=== PATIENT | male | born 1995 | race American Indian/Alaskan Native ===

== ENCOUNTER 2016-11-21 03:23 | Inpatient (IN) | payer OTHER ==
[2016-11-21 05:24] LABS: Basophils % (Auto) 1.3 % (0.0-1.8); Mean Corpuscular HGB Conc 31 % (32-34); Mean Corpuscular Volume 83 fl (84-94); Platelet Count 340 K/mm3 (140-440); Red Cell Distribution Width 14.3 % (13.2-15.2); White Blood Count 12.3 K/mm3 (4.5-11.0)
[2016-11-21 05:25] LABS: Hematocrit 55.5 % (35.5-45.6); Hemoglobin 17.3 gm/dl (11.8-15.2); Mean Corpuscular Hemoglobin 26 pg (28-32)
[2016-11-21 05:43] LABS: Alanine Aminotransferase 36 units/L (7-56); Albumin 4.5 g/dL (3.9-5); Albumin/Globulin Ratio 1.2 %; Alkaline Phosphatase 186 units/L (35-129); BUN/Creatinine Ratio 12.66; Bilirubin,Total 0.4 mg/dL (0.1-1.2); Blood Urea Nitrogen 19 mg/dL (9-20); Calcium 9.8 mg/dL (8.4-10.2); Chloride 84.1 mmol/L (98-107); Lipase 24 units/L (13-60); Sodium 129 mmol/L (137-145); Total Protein 8.4 g/dL (6.3-8.2)
[2016-11-21 05:48] LABS: Anion Gap 42 mmol/L
[2016-11-21 05:50] LABS: Carbon Dioxide 8 mmol/L (22-30); Glucose 616 mg/dL (75-100)
[2016-11-21] MEDS ORDERED: NACL 0.9% 1000 ML 2,000 ML ONE (06:18)
[2016-11-21] MEDS ORDERED: NACL 0.9% 1000 ML IV ONE (06:21)
[2016-11-21] MEDS ORDERED: D50W (25GM) IV PRN ×2 (06:22→07:23)
--- NOTE | 2016-11-21 06:31 | Emergency Department Report ---
HPI - General Chief Complaint: Abdominal Pain Time Seen by Provider: 11/21/16 06:20 - HPI HPI: Chief complaint: Nausea vomiting polyuria polydipsia and generalized malaise HPI: Patient is a 21-year-old male with no previous history of diabetes but it does run in his family who states he's been having polyuria since August. States since Friday he's been having nausea vomiting and feeling bad. Some weight loss. Patient denies fever, cough, cold, diarrhea. Mode of arrival: [private car] Source: [Patient] Began: See above Duration: See above Context: See above Quality: Abdominal pain and dull Severity: 8 out of 10 Improved with: Nothing Worsened with: Nothing Associated signs and symptoms: See above ED Past Medical Hx - Past Medical History Previous Medical History?: No - Surgical History Past Surgical History?: No - Family History Family history: diabetes - Social History Smoking Status: Never Smoker Substance Use Type: Alcohol (occasionally) - Medications Home Medications: Home Medications Medication Instructions Recorded Confirmed Last Taken Type No Known Home Medications [No 11/21/16 11/21/16 Unknown History Reported Home Medications] ED Review of Systems ROS: Stated complaint: ABD PAIN/VOMITING/SOB Other details as noted in HPI ROS Constitutional: No fever ENT: No uri symptoms Cardiovascular: No chest pain Respiratory: No sob or cough GI: Nodiarrhea : See HPI Skin: No rash Neuro: No focal weakness or numbness Psych: No depression [place]/lymph: No edema Physical Exam - Physical Exam Vital Signs: Vital Signs 11/21/16 11/21/16 03:33 06:23 Temperature 97.2 F L Pulse Rate 109 H 104 H Respiratory 18 Rate Blood Pressure 156/104 Blood Pressure 134/88 [Left] O2 Sat by Pulse 99 99 Oximetry Physical Exam: GENERAL: The patient is well-developed well-nourished . HEENT: Normocephalic. Atraumatic. Extraocular motions are intact. Patient has dry mucous membranes. NECK: Supple. No meningitic signs are noted. There is no adenopathy noted. CHEST/LUNGS: Clear to auscultation. There is no respiratory distress noted. HEART/CARDIOVASCULAR: Regular. There is no tachycardia. There is no gallop rub or murmur. ABDOMEN: Abdomen is soft, mild diffuse tenderness without rebound or guarding. Patient has normal bowel sounds. There is no abdominal distention. SKIN: There is no rash. There is no edema. There is no diaphoresis. NEURO: The patient is awake, alert, and oriented. The patient is cooperative. The patient has no focal neurologic deficits. The patient has normal speech. MUSCULOSKELETAL: There is no tenderness or deformity. There is no limitation range of motion. There is no evidence of acute injury. ED Course Vital Signs 11/21/16 11/21/16 03:33 06:23 Temperature 97.2 F L Pulse Rate 109 H 104 H Respiratory 18 Rate Blood Pressure 156/104 Blood Pressure 134/88 [Left] O2 Sat by Pulse 99 99 Oximetry - Reevaluation(s) Reevaluation #1: 11/21/16 06:34 Patient placed on DKA protocol on 2 L of normal saline were started. Patient will be admitted to the hospitalist. ED Medical Decision Making - Lab Data Result diagrams: 11/21/16 05:08 11/21/16 05:08 Laboratory Tests 11/21/16 05:08 Alkaline Phosphatase 186 H Total Protein 8.4 H Lipase 24 - EKG Data -: EKG Interpreted by Nc EKG shows normal: sinus rhythm Rate: normal (91) - EKG Data When compared to previous EKG there are: previous EKG unavailable Interpretation: other (right atrial enlargement, pulmonary disease pattern) Critical care attestation.: If time is entered above; I have spent that time in minutes in the direct care of this critically ill patient, excluding procedure time. ED Disposition Clinical Impression: DKA (diabetic ketoacidoses) Qualifiers: Diabetes mellitus type: type 1 Diabetes mellitus complication detail: without coma Qualified Code(s): E10.10 - Type 1 diabetes mellitus with ketoacidosis without coma Disposition: OP ADMITTED IP TO THIS HOSP Is pt being admited?: Yes Does the pt Need Aspirin: No Condition: Serious Instructions: Diabetic Ketoacidosis (ED) Referrals: PRIMARY CARE, [Primary Care Provider] - 3-5 Days Time of Disposition: 06:43 (admit to the hospitalist)
[2016-11-21 06:58] LABS: Bilirubin,Urine NEG (Negative); Blood,Urine SM (Negative); Ketones,Urine 80 mg/dL (Negative); Leukocyte Esterase,Urine NEG (Negative); Mucus,Urine FEW /HPF; Nitrite,Urine NEG (Negative); Urobilinogen,Urine < 2.0 mg/dL (<2.0); WBC,Urine < 1.0 /HPF (0.0-6.0)
[2016-11-21] MEDS: NovoLIN R 100 UNITS in NACL 0.9% 99 ML IV SCH ×2 (07:00→19:21)
[2016-11-21 07:07] LABS: Magnesium 2.4 mg/dL (1.7-2.3)
[2016-11-21 07:08] LABS: Calcium 9.8 mg/dL (8.4-10.2); Chloride 83.9 mmol/L (98-107); Potassium 5.3 mmol/L (3.6-5.0)
[2016-11-21] MEDS ORDERED: REGLAN IV PRN (07:23)
[2016-11-21] MEDS ORDERED: NACL 0.9% 1000 ML 1,000 ML IV ONE (07:23)
[2016-11-21] MEDS ORDERED: DULCOLAX PR PRN (07:23)
[2016-11-21] MEDS ORDERED: MILK OF MAGNESIA PO PRN (07:23)
[2016-11-21] MEDS ORDERED: ALUM-MAG HYDROX-SIMETH 200-200-20MG/5ML PO PRN (07:23)
[2016-11-21] MEDS ORDERED: ZOFRAN IV PRN (07:23)
--- NOTE | 2016-11-21 07:23 | History and Physical Report ---
History of Present Illness Date of examination: 11/21/16 History of present illness: Patient is a 21-year-old male with no previous history of diabetes but it does run in his family who states he's been having polyuria since August. States since Friday he's been having nausea vomiting and feeling bad. Some weight loss. Patient denies fever, cough, cold, diarrhea. Medications and Allergies Allergies Allergy/AdvReac Type Severity Reaction Status Date / Time peanut Allergy Angioedema Verified 11/21/16 04:55 shellfish derived Allergy Angioedema Verified 11/21/16 04:55 Home Medications Medication Instructions Recorded Confirmed Last Taken Type No Known Home Medications [No 11/21/16 11/21/16 Unknown History Reported Home Medications] Active Meds: Active Medications Dextrose (D50w (25gm)) 0 ml IV ONCE PRN PRN Reason: Hypoglycemia Insulin Human Regular 100 (units/ Sodium Chloride) 100 mls @ 1 mls/hr IV TITR JOSY; 1 UNITS/HR PRN Reason: Protocol Review of Systems Gastrointestinal: nausea, vomiting, loss of appetite Exam - Constitutional Vitals: Temp Pulse Resp BP Pulse Ox 97.2 F L 104 H 18 134/88 99 11/21/16 03:33 11/21/16 06:23 11/21/16 06:27 11/21/16 06:23 11/21/16 06:27 General appearance: Present: no acute distress - EENT Eyes: Present: PERRL, EOM intact ENT: hearing intact, clear oral mucosa - Neck Neck: Present: supple, normal ROM - Respiratory Respiratory effort: normal Respiratory: bilateral: CTA - Cardiovascular Rhythm: regular Heart Sounds: Present: S1 & S2 - Abdominal General gastrointestinal: Present: soft, non-tender, non-distended, normal bowel sounds - Musculoskeletal Musculoskeletal: strength equal bilaterally - Psychiatric Psychiatric: appropriate mood/affect, intact judgment & insight - Neurologic Neurologic: CNII-XII intact, moves all extremities Results - Labs CBC & Chem 7: 11/21/16 05:08 11/21/16 13:06 Labs: Laboratory Last Values WBC 12.3 K/mm3 (4.5-11.0) H 11/21/16 05:08 RBC 6.70 M/mm3 (3.65-5.03) H 11/21/16 05:08 Hgb 17.3 gm/dl (11.8-15.2) H 11/21/16 05:08 Hct 55.5 % (35.5-45.6) H 11/21/16 05:08 MCV 83 fl (84-94) L 11/21/16 05:08 MCH 26 pg (28-32) L 11/21/16 05:08 MCHC 31 % (32-34) L 11/21/16 05:08 RDW 14.3 % (13.2-15.2) 11/21/16 05:08 Plt Count 340 K/mm3 (140-440) 11/21/16 05:08 Lymph % (Auto) 13.1 % (13.4-35.0) L 11/21/16 05:08 [place] % (Auto) 2.7 % (0.0-7.3) 11/21/16 05:08 Eos % (Auto) 0.0 % (0.0-4.3) 11/21/16 05:08 Baso % (Auto) 1.3 % (0.0-1.8) 11/21/16 05:08 Lymph # 1.6 K/mm3 (1.2-5.4) 11/21/16 05:08 [place] # 0.3 K/mm3 (0.0-0.8) 11/21/16 05:08 Eos # 0.0 K/mm3 (0.0-0.4) 11/21/16 05:08 Baso # 0.2 K/mm3 (0.0-0.1) H 11/21/16 05:08 Seg Neutrophils % 82.9 % (40.0-70.0) H 11/21/16 05:08 Seg Neutrophils # 10.2 K/mm3 (1.8-7.7) H 11/21/16 05:08 Sodium 133 mmol/L (137-145) L 11/21/16 06:28 Potassium 5.3 mmol/L (3.6-5.0) H 11/21/16 06:28 Chloride 83.9 mmol/L (98-107) L 11/21/16 06:28 Carbon Dioxide 11 mmol/L (22-30) L 11/21/16 06:28 Anion Gap 43 mmol/L 11/21/16 06:28 BUN 18 mg/dL (9-20) 11/21/16 06:28 Creatinine 1.8 mg/dL (0.8-1.5) H 11/21/16 06:28 Estimated GFR 58 ml/min 11/21/16 06:28 BUN/Creatinine Ratio 10.00 % 11/21/16 06:28 Glucose 616 mg/dL (75-100) H* 11/21/16 05:08 Calcium 9.8 mg/dL (8.4-10.2) 11/21/16 06:28 Phosphorus 6.0 mg/dL (2.5-4.5) H 11/21/16 06:28 Magnesium 2.4 mg/dL (1.7-2.3) H 11/21/16 06:28 Total Bilirubin 0.4 mg/dL (0.1-1.2) 11/21/16 05:08 AST 31 units/L (5-40) 11/21/16 05:08 ALT 36 units/L (7-56) 11/21/16 05:08 Alkaline Phosphatase 186 units/L (35-129) H 11/21/16 05:08 Total Protein 8.4 g/dL (6.3-8.2) H 11/21/16 05:08 Albumin 4.5 g/dL (3.9-5) 11/21/16 05:08 Albumin/Globulin Ratio 1.2 % 11/21/16 05:08 Lipase 24 units/L (13-60) 11/21/16 05:08 Urine Color Straw (Yellow) 11/21/16 06:23 Urine Turbidity Clear (Clear) 11/21/16 06:23 Urine pH 5.0 (5.0-7.0) 11/21/16 06:23 Ur Specific [place] 1.030 (1.003-1.030) 11/21/16 06:23 Urine Protein 100 mg/dl mg/dL (Negative) 11/21/16 06:23 Urine Glucose (UA) >=500 mg/dL (Negative) 11/21/16 06:23 Urine Ketones 80 mg/dL (Negative) 11/21/16 06:23 Urine Blood Sm (Negative) 11/21/16 06:23 Urine Nitrite Neg (Negative) 11/21/16 06:23 Urine Bilirubin Neg (Negative) 11/21/16 06:23 Urine Urobilinogen < 2.0 mg/dL (<2.0) 11/21/16 06:23 Ur Leukocyte Esterase Neg (Negative) 11/21/16 06:23 Urine WBC (Auto) < 1.0 /HPF (0.0-6.0) 11/21/16 06:23 Urine RBC (Auto) 5.0 /HPF (0.0-6.0) 11/21/16 06:23 U Epithel Cells (Auto) < 1.0 /HPF (0-13.0) 11/21/16 06:23 Urine Mucus Few /HPF 11/21/16 06:23 Assessment and Plan - Patient Problems (1) DKA (diabetic ketoacidoses) Current Visit: Yes Status: Acute Qualifiers: Diabetes mellitus type: type 1 Diabetes mellitus complication detail: without coma Qualified Code(s): E10.10 - Type 1 diabetes mellitus with ketoacidosis without coma Plan to address problem: Patient will be admitted to the intensive care unit. Patient was started on insulin drip protocol with insulin and IV fluid hydration will follow potassium and venous pH. Will make adjustments based on insulin drip protocol. Patient unable to eat at this time
--- NOTE | 2016-11-21 07:53 | Admit Criteria Form ---
Admission Criteria Documentation: DIABETES Clinical Indications for Admission to Inpatient Care (Place 'X' for any and all applicable criteria): Admission is indicated by presence of ALL (if I & II) or ANY ONE (if III or IV) of the following (1)(2)(3)(4): [ x]I. Diabetes is uncontrolled as indicated by ANY ONE of the following: [ X]a) Diabetic ketoacidosis as indicated by ALL of the following (8): [ X]i) Hyperglycemia (eg, plasma glucose greater than 200 mg /dL (11.1 mmol/L)) [X ]ii) Acidosis (eg, arterial pH less than 7.30, serum bicarbonate level less than 15 mEq/L (mmol/L)) [X ]iii) Moderate ketonuria or ketonemia [ ]b) Hyperglycemic hyperosmolar state as indicated by ALL of the following(9)(10): [ ]i) Neurologic dysfunction (eg, stupor, coma, hemiparesis , seizure)(13) [ ]ii) Plasma glucose greater than 600 mg/dL (33.3 mmol/L) [ ]iii) Serum osmolality greater than 320 mOsm/kg (mmol/kg) [ ]c) Severe signs or symptoms secondary to hyperglycemia indicated by ANY ONE of the following: [ ]i) Altered mental status(10) [ ]ii) Significant hypovolemia or dehydration [ ]iii) Intractable nausea or vomiting [ ]iv) Unexplained fever or severe infection [ ]v) Severe electrolyte abnormality (eg, hypokalemia, hyperkalemia, hypernatremia) [X ]II. Management at other levels of care (Also use Diabetes: Observation Care as appropriate) is not feasible because of ANY ONE of the following: [ X]a) Condition was not adequately corrected with treatment at other levels of care. [ ]b) Treatment at other levels of care is not appropriate because of condition severity (eg, hyperosmolar coma). [ ]III. Contraindications and/or Inappropriate clinical situations for Observational Care in patients with Diabetes, when ANY ONE of the following is required: [ ]a) Patient require specific diagnostic workup or therapeutic intervention 22 [ ]b) Patient with abnormal vital signs or altered mental status 23 [ ]IV. General contraindications and/or Inappropriate clinical situations for Observational Care in patients with Diabetes, when ANY ONE of the following is required: [ ]a) Prediction of prolongation of LOS based on ANY ONE of the following may be considered as a contraindication for observational care 2, 3, 4, 5, 6, 7, 8, 9, 10, 11 [ ]i) Age > 65 yrs. [ ]ii) Patient arriving by ambulance [ ]iii) Patient with high acuity [ ]iv) Patient requiring vital sign monitoring [ ]v) Patient on IV medication [ ]b) Systolic blood pressures 180mmHg 3,12 [ ]c) Patient with altered mental status including delirium and other alteration of consciousness, (3) [ ]d) Patient whose discharge disposition will be to a snf home or rehabilitation home should not be managed in Emergency Department Observation Unit. CMS rule requires 3 days hospital stay before such placement.3,13 [ ]e) Patient with failure to thrive due to broad array of etiologies 3,16,17 [ ]f) Inability to ambulate 3,14 Extended stay beyond goal length of stay may be needed for(3)(20): [ ]a) Treatment of precipitating causes [ ]b) Development of hypoglycemia [ ]c) Complications of treatment [ ]d) Complications of decompensated diabetes (eg, acute gastric dilatation, persistent metabolic or neurologic derangement) [ ]e) Active Comorbidities [ ]f) Older patients( 65 years or older) The original [employer] content created by [employer] has been revised. The portions of the content which have been revised are identified through the use of italic text or in bold,and [facility] has neither reviewed nor approved the modified material. All other unmodified content is copyright [employer]. Please see references footnoted in the original [employer] [facility] [employer] edition 2016 Admission Criteria Met: Yes
[2016-11-21] MEDS ORDERED: NovoLIN R 100 UNITS in NACL 0.9% 99 ML IV SCH (08:00)
[2016-11-21 08:21] LABS: Cholesterol 374 mg/dL (50-199); HDL Cholesterol 39 mg/dL (40-59); LDL Cholesterol,Direct TNR mg/dL (50-130); Triglycerides 798 mg/dL (2-149)
[2016-11-21 08:39] LABS: BUN/Creatinine Ratio 11.33; Blood Urea Nitrogen 17 mg/dL (9-20); Calcium 8.9 mg/dL (8.4-10.2); Chloride 93.7 mmol/L (98-107); Glucose 491 mg/dL (75-100); Potassium 4.7 mmol/L (3.6-5.0); Sodium 136 mmol/L (137-145)
[2016-11-21] MEDS: MORPHINE IV PRN ×2 (08:46→13:25)
[2016-11-21 08:47] LABS: Anion Gap 41 mmol/L
[2016-11-21 09:13] LABS: Carbon Dioxide 6 mmol/L (22-30)
[2016-11-21 09:39] LABS: BUN/Creatinine Ratio 10.66; Blood Urea Nitrogen 16 mg/dL (9-20); Calcium 8.7 mg/dL (8.4-10.2); Chloride 97.1 mmol/L (98-107); Glucose 414 mg/dL (75-100); Potassium 4.6 mmol/L (3.6-5.0); Sodium 138 mmol/L (137-145)
[2016-11-21 09:40] LABS: Magnesium 2.3 mg/dL (1.7-2.3); Phosphorous 3.4 mg/dL (2.5-4.5)
[2016-11-21 09:42] LABS: Anion Gap 37 mmol/L; Carbon Dioxide 9 mmol/L (22-30)
[2016-11-21] MEDS ORDERED: LOVENOX SUB-Q SCH (10:00)
[2016-11-21] MEDS ORDERED: NACL 0.9% 1000 ML 1,000 ML ONE (10:03)
[2016-11-21] MEDS ORDERED: LOVENOX SUB-Q ONE (10:03)
[2016-11-21 10:48] LABS: Blood Urea Nitrogen 16 mg/dL (9-20); Chloride 98.6 mmol/L (98-107); Glucose 348 mg/dL (75-100); Potassium 4.6 mmol/L (3.6-5.0); Sodium 141 mmol/L (137-145)
[2016-11-21 10:49] LABS: Anion Gap 38 mmol/L; Carbon Dioxide 9 mmol/L (22-30)
--- NOTE | 2016-11-21 11:14 | Consultation ---
History of Present Illness Consult date: 11/21/16 Requesting physician: VLADISLAV SMILEY Reason for consult: other (DKA) History of present illness: PULMONARY CONSULT NOTE (Full dictation # [id number]) Please see dictated notes for full details Medications and Allergies Allergies Allergy/AdvReac Type Severity Reaction Status Date / Time peanut Allergy Angioedema Verified 11/21/16 04:55 shellfish derived Allergy Angioedema Verified 11/21/16 04:55 Home Medications Medication Instructions Recorded Confirmed Last Taken Type No Known Home Medications [No 11/21/16 11/21/16 Unknown History Reported Home Medications] Active Meds: Active Medications Al Hydrox/Mg Hydrox/Simethicone (Alum-Mag Hydrox-Simeth [id number]/5ml) 30 ml PO Q4H PRN PRN Reason: Indigestion Bisacodyl (Dulcolax) 10 mg AR QDAY PRN PRN Reason: constipation unrelieved by MOM Dextrose (D50w (25gm)) 0 ml IV ONCE PRN PRN Reason: Hypoglycemia Dextrose (D50w (25gm)) 0 ml IV PRN PRN PRN Reason: Hypoglycemia Enoxaparin Sodium (Lovenox) 30 mg SUB-Q QDAY JOSY Last Admin: 11/21/16 10:15 Dose: 30 mg Insulin Human Regular 100 (units/ Sodium Chloride) 100 mls @ 1 mls/hr IV TITR JOSY; 1 UNITS/HR PRN Reason: Protocol Last Titration: 11/21/16 10:30 Dose: 5 units/hr, 5 mls/hr Potassium Chloride/Dextrose/Sod Cl (D5w/0.45% Nacl/Kcl 20 Meq) 20 meq in 1,000 mls @ 125 mls/hr IV DIRECT JOSY Insulin Human Regular 100 (units/ Sodium Chloride) 100 mls @ 1 mls/hr IV TITR JOSY; 1 UNITS/HR PRN Reason: Protocol Magnesium Hydroxide (Milk Of Magnesia) 30 ml PO Q4H PRN PRN Reason: Constipation Metoclopramide HCl (Reglan) 10 mg IV Q6H PRN PRN Reason: Nausea And Vomiting Morphine Sulfate (Morphine) 2 mg IV Q4H PRN PRN Reason: Pain, Moderate (4-6) Last Admin: 11/21/16 08:46 Dose: 2 mg Ondansetron HCl (Zofran) 4 mg IV Q8H PRN PRN Reason: N/V unrelieved by Shantel Last Admin: 11/21/16 08:45 Dose: 4 mg Physical Examination Vital signs: Vital Signs Temp Pulse BP Pulse Ox 97.2 F L 109 H 156/104 99 11/21/16 03:33 11/21/16 03:33 11/21/16 03:33 11/21/16 03:33 Results - Laboratory Findings CBC and BMP: 11/21/16 05:08 11/22/16 07:26 Abnormal lab findings: Abnormal Labs 11/21/16 11/21/16 11/21/16 08:08 08:16 09:11 Sodium 136 L Chloride 93.7 L 97.1 L Carbon Dioxide 6 L* 9 L* Glucose 491 H 414 H POC Glucose 436 H 11/21/16 11/21/16 09:24 10:17 Sodium Chloride Carbon Dioxide 9 L* Glucose 348 H POC Glucose 397 H
[2016-11-21 12:46] LABS: Anion Gap 34 mmol/L; Blood Urea Nitrogen 15 mg/dL (9-20); Calcium 9.3 mg/dL (8.4-10.2); Carbon Dioxide 14 mmol/L (22-30); Chloride 102.8 mmol/L (98-107); Glucose 280 mg/dL (75-100); Potassium 4.7 mmol/L (3.6-5.0); Sodium 146 mmol/L (137-145)
[2016-11-21 13:44] LABS: Blood Urea Nitrogen 14 mg/dL (9-20); Calcium 9.1 mg/dL (8.4-10.2); Chloride 102.4 mmol/L (98-107); Glucose 256 mg/dL (75-100); Potassium 4.5 mmol/L (3.6-5.0); Sodium 143 mmol/L (137-145)
[2016-11-21 13:50] LABS: Anion Gap 37 mmol/L
[2016-11-21 13:54] LABS: Carbon Dioxide 8 mmol/L (22-30)
[2016-11-21] MEDS: D5W/0.45% NACL/KCL 20 MEQ 20 MEQ/1,000 ML BAG IV SCH ×2 (14:48→23:00)
[2016-11-21 15:45] LABS: BUN/Creatinine Ratio 11.66; Blood Urea Nitrogen 14 mg/dL (9-20); Calcium 9.2 mg/dL (8.4-10.2); Carbon Dioxide 15 mmol/L (22-30); Chloride 101.9 mmol/L (98-107); Glucose 241 mg/dL (75-100); Potassium 4.8 mmol/L (3.6-5.0); Sodium 143 mmol/L (137-145)
[2016-11-21 15:46] LABS: Anion Gap 31 mmol/L
[2016-11-21 16:26] LABS: Anion Gap 29 mmol/L; BUN/Creatinine Ratio 10.83; Blood Urea Nitrogen 13 mg/dL (9-20); Calcium 9.2 mg/dL (8.4-10.2); Carbon Dioxide 15 mmol/L (22-30); Chloride 103.3 mmol/L (98-107); Glucose 242 mg/dL (75-100); Potassium 4.2 mmol/L (3.6-5.0); Sodium 143 mmol/L (137-145)
[2016-11-21 23:24] LABS: Anion Gap 25 mmol/L; BUN/Creatinine Ratio 8.46; Blood Urea Nitrogen 11 mg/dL (9-20); Calcium 9.1 mg/dL (8.4-10.2); Carbon Dioxide 18 mmol/L (22-30); Chloride 107.9 mmol/L (98-107); Glucose 162 mg/dL (75-100); Potassium 3.9 mmol/L (3.6-5.0); Sodium 147 mmol/L (137-145)
[2016-11-22 02:39] LABS: Anion Gap 24 mmol/L; Blood Urea Nitrogen 12 mg/dL (9-20); Calcium 9.6 mg/dL (8.4-10.2); Carbon Dioxide 16 mmol/L (22-30); Chloride 107.6 mmol/L (98-107); Glucose 168 mg/dL (75-100); Potassium 3.8 mmol/L (3.6-5.0); Sodium 144 mmol/L (137-145)
--- NOTE | 2016-11-22 06:32 | Progress Note ---
Assessment and Plan - Patient Problems (1) DKA (diabetic ketoacidoses) Current Visit: Yes Status: Acute Qualifiers: Diabetes mellitus type: type 1 Diabetes mellitus complication detail: without coma Qualified Code(s): E10.10 - Type 1 diabetes mellitus with ketoacidosis without coma Plan to address problem: Patient will continue on insulin drip protocol with insulin and IV fluid hydration will follow potassium and venous pH. Will make adjustments based on insulin drip protocol. Patient unable to eat at this time. Patient asking to eat. We will get diabetic teaching nurse to visit the patient today History Interval history: Patient feeling much better this a.m. Patient asking to eat Hospitalist Physical - Constitutional Vitals: Temp Pulse Resp BP Pulse Ox 97.5 F L 72 13 111/57 98 11/22/16 05:00 11/22/16 04:00 11/22/16 03:00 11/22/16 03:00 11/22/16 04:00 General appearance: Present: no acute distress - EENT Eyes: Present: PERRL, EOM intact ENT: hearing intact, clear oral mucosa - Neck Neck: Present: supple, normal ROM - Respiratory Respiratory effort: normal Respiratory: bilateral: CTA - Cardiovascular Rhythm: regular Heart Sounds: Present: S1 & S2 - Abdominal General gastrointestinal: soft, non-tender, non-distended, normal bowel sounds - Psychiatric Psychiatric: appropriate mood/affect, intact judgment & insight - Neurologic Neurologic: CNII-XII intact, moves all extremities Results - Labs CBC & Chem 7: 11/21/16 05:08 11/22/16 07:26 Labs: Laboratory Last Values WBC 12.3 K/mm3 (4.5-11.0) H 11/21/16 05:08 RBC 6.70 M/mm3 (3.65-5.03) H 11/21/16 05:08 Hgb 17.3 gm/dl (11.8-15.2) H 11/21/16 05:08 Hct 55.5 % (35.5-45.6) H 11/21/16 05:08 MCV 83 fl (84-94) L 11/21/16 05:08 MCH 26 pg (28-32) L 11/21/16 05:08 MCHC 31 % (32-34) L 11/21/16 05:08 RDW 14.3 % (13.2-15.2) 11/21/16 05:08 Plt Count 340 K/mm3 (140-440) 11/21/16 05:08 Lymph % (Auto) 13.1 % (13.4-35.0) L 11/21/16 05:08 [place] % (Auto) 2.7 % (0.0-7.3) 11/21/16 05:08 Eos % (Auto) 0.0 % (0.0-4.3) 11/21/16 05:08 Baso % (Auto) 1.3 % (0.0-1.8) 11/21/16 05:08 Lymph # 1.6 K/mm3 (1.2-5.4) 11/21/16 05:08 [place] # 0.3 K/mm3 (0.0-0.8) 11/21/16 05:08 Eos # 0.0 K/mm3 (0.0-0.4) 11/21/16 05:08 Baso # 0.2 K/mm3 (0.0-0.1) H 11/21/16 05:08 Seg Neutrophils % 82.9 % (40.0-70.0) H 11/21/16 05:08 Seg Neutrophils # 10.2 K/mm3 (1.8-7.7) H 11/21/16 05:08 VBG pH 7.157 (7.320-7.420) L* 11/21/16 06:28 Sodium 144 mmol/L (137-145) 11/22/16 00:44 Potassium 3.8 mmol/L (3.6-5.0) 11/22/16 00:44 Chloride 107.6 mmol/L (98-107) H 11/22/16 00:44 Carbon Dioxide 16 mmol/L (22-30) L 11/22/16 00:44 Anion Gap 24 mmol/L 11/22/16 00:44 BUN 12 mg/dL (9-20) 11/22/16 00:44 Creatinine 1.2 mg/dL (0.8-1.5) 11/22/16 00:44 Estimated GFR > 60 ml/min 11/22/16 00:44 BUN/Creatinine Ratio 10.00 % 11/22/16 00:44 Glucose 168 mg/dL (75-100) H 11/22/16 00:44 POC Glucose 86 (70-105) 11/22/16 06:15 Hemoglobin A1c > 20.1 % (4-6) H 11/21/16 07:23 Calcium 9.6 mg/dL (8.4-10.2) 11/22/16 00:44 Phosphorus 3.4 mg/dL (2.5-4.5) D 11/21/16 09:11 Magnesium 2.3 mg/dL (1.7-2.3) 11/21/16 09:11 Total Bilirubin 0.4 mg/dL (0.1-1.2) 11/21/16 05:08 AST 31 units/L (5-40) 11/21/16 05:08 ALT 36 units/L (7-56) 11/21/16 05:08 Alkaline Phosphatase 186 units/L (35-129) H 11/21/16 05:08 Total Protein 8.4 g/dL (6.3-8.2) H 11/21/16 05:08 Albumin 4.5 g/dL (3.9-5) 11/21/16 05:08 Albumin/Globulin Ratio 1.2 % 11/21/16 05:08 Triglycerides 798 mg/dL (2-149) H 11/21/16 06:28 Cholesterol 374 mg/dL (50-199) H 11/21/16 06:28 LDL Cholesterol Direct TNR 11/21/16 06:28 HDL Cholesterol 39 mg/dL (40-59) L 11/21/16 06:28 Cholesterol/HDL Ratio 9.58 % 11/21/16 06:28 Lipase 24 units/L (13-60) 11/21/16 05:08 Urine Color Straw (Yellow) 11/21/16 06:23 Urine Turbidity Clear (Clear) 11/21/16 06:23 Urine pH 5.0 (5.0-7.0) 11/21/16 06:23 Ur Specific [place] 1.030 (1.003-1.030) 11/21/16 06:23 Urine Protein 100 mg/dl mg/dL (Negative) 11/21/16 06:23 Urine Glucose (UA) >=500 mg/dL (Negative) 11/21/16 06:23 Urine Ketones 80 mg/dL (Negative) 11/21/16 06:23 Urine Blood Sm (Negative) 11/21/16 06:23 Urine Nitrite Neg (Negative) 11/21/16 06:23 Urine Bilirubin Neg (Negative) 11/21/16 06:23 Urine Urobilinogen < 2.0 mg/dL (<2.0) 11/21/16 06:23 Ur Leukocyte Esterase Neg (Negative) 11/21/16 06:23 Urine WBC (Auto) < 1.0 /HPF (0.0-6.0) 11/21/16 06:23 Urine RBC (Auto) 5.0 /HPF (0.0-6.0) 11/21/16 06:23 U Epithel Cells (Auto) < 1.0 /HPF (0-13.0) 11/21/16 06:23 Urine Mucus Few /HPF 11/21/16 06:23 Ketones 107.6 mg/dL (0.2-2.8) H 11/21/16 06:28
[2016-11-22] MEDS: D5W/0.45% NACL/KCL 20 MEQ 20 MEQ/1,000 ML BAG IV SCH ×2 (06:34→22:29)
[2016-11-22 07:01] LABS: Anion Gap 23 mmol/L; BUN/Creatinine Ratio 9.16; Blood Urea Nitrogen 11 mg/dL (9-20); Calcium 9.4 mg/dL (8.4-10.2); Carbon Dioxide 17 mmol/L (22-30); Chloride 110.6 mmol/L (98-107); Glucose 104 mg/dL (75-100); Potassium 4.1 mmol/L (3.6-5.0); Sodium 146 mmol/L (137-145)
[2016-11-22 08:05] LABS: Anion Gap 23 mmol/L; BUN/Creatinine Ratio 8.46; Blood Urea Nitrogen 11 mg/dL (9-20); Calcium 9.2 mg/dL (8.4-10.2); Carbon Dioxide 17 mmol/L (22-30); Chloride 108.6 mmol/L (98-107); Glucose 163 mg/dL (75-100); Potassium 3.9 mmol/L (3.6-5.0); Sodium 145 mmol/L (137-145)
[2016-11-22] MEDS: LOVENOX SUB-Q SCH (11:18)
--- NOTE | 2016-11-22 11:59 | Progress Note ---
Assessment and Plan - Patient Problems (1) DKA (diabetic ketoacidoses) Current Visit: Yes Status: Acute Qualifiers: Diabetes mellitus type: type 1 Diabetes mellitus complication detail: without coma Qualified Code(s): E10.10 - Type 1 diabetes mellitus with ketoacidosis without coma Plan to address problem: - repeat BMP - transition to long acting insulin if gap closed - continue IV resuscitation Subjective Date of service: 11/22/16 Principal diagnosis: DKA Interval history: Seen and examined at bedside; 24 hour events reviewed; nursing and respiratory care staff consulted; no adverse overnight events reported to me; resting in bed ; remains on IV insulin; denies acute chest pains or increased SOB Objective Vital Signs - 12hr 11/22/16 11/22/16 11/22/16 00:00 01:00 01:20 Temperature 98.9 F Pulse Rate 84 67 Pulse Rate [ 74 From Monitor] Respiratory 12 13 Rate Blood Pressure 121/76 116/62 O2 Sat by Pulse 98 96 Oximetry 11/22/16 11/22/16 11/22/16 02:00 03:00 04:00 Temperature Pulse Rate 80 69 65 Pulse Rate [ 72 From Monitor] Respiratory 18 13 11 L Rate Blood Pressure 125/71 111/57 111/68 O2 Sat by Pulse 97 94 97 Oximetry 11/22/16 11/22/16 11/22/16 05:00 06:00 07:00 Temperature 97.5 F L Pulse Rate 64 69 70 Pulse Rate [ From Monitor] Respiratory 11 L 13 13 Rate Blood Pressure 116/68 119/70 108/54 O2 Sat by Pulse 97 97 96 Oximetry 11/22/16 11/22/16 11/22/16 08:00 09:00 10:00 Temperature 98.3 F Pulse Rate 69 70 68 Pulse Rate [ 72 From Monitor] Respiratory 13 11 L 12 Rate Blood Pressure 122/68 120/66 120/72 O2 Sat by Pulse 99 98 98 Oximetry Constitutional: no acute distress Eyes: non-icteric ENT: oropharynx moist Neck: supple Effort: normal Ascultation: Bilateral: clear Cardiovascular: regular rate and rhythm Gastrointestinal: normoactive bowel sounds, soft, non-tender, non-distended Integumentary: normal Extremities: no cyanosis, no edema, pulses normal Neurologic: normal mental status, non-focal exam, pupils equal and round, motor strength normal and Psychiatric: mood appropriate, affect normal CBC and BMP: 11/21/16 05:08 11/22/16 07:26 Abnormal lab findings: Abnormal Labs 11/21/16 11/21/16 11/21/16 08:08 08:16 09:11 Sodium 136 L Chloride 93.7 L 97.1 L Carbon Dioxide 6 L* 9 L* Glucose 491 H 414 H POC Glucose 436 H Urine Creatinine 11/21/16 11/21/16 11/21/16 09:24 10:17 10:30 Sodium Chloride Carbon Dioxide 9 L* Glucose 348 H POC Glucose 397 H 297 H Urine Creatinine 11/21/16 11/21/16 11/21/16 11:35 12:16 12:49 Sodium 146 H Chloride Carbon Dioxide 14 L Glucose 280 H POC Glucose 305 H 219 H Urine Creatinine 11/21/16 11/21/16 11/21/16 13:06 14:18 14:26 Sodium Chloride Carbon Dioxide 8 L* 15 L D Glucose 256 H 241 H POC Glucose 214 H Urine Creatinine 11/21/16 11/21/16 11/21/16 15:24 15:38 16:41 Sodium Chloride Carbon Dioxide 15 L Glucose 242 H POC Glucose 210 H 233 H Urine Creatinine 11/21/16 11/21/16 11/21/16 18:08 19:14 20:05 Sodium Chloride Carbon Dioxide Glucose POC Glucose 197 H 173 H 210 H Urine Creatinine 11/21/16 11/21/16 11/21/16 21:17 22:10 22:54 Sodium 147 H Chloride 107.9 H Carbon Dioxide 18 L Glucose 162 H POC Glucose 174 H 142 H Urine Creatinine 11/21/16 11/22/16 11/22/16 23:04 00:06 00:10 Sodium Chloride Carbon Dioxide Glucose POC Glucose 171 H 191 H 162 H Urine Creatinine 11/22/16 11/22/16 11/22/16 00:44 01:20 02:26 Sodium Chloride 107.6 H Carbon Dioxide 16 L Glucose 168 H POC Glucose 173 H 162 H Urine Creatinine 11/22/16 11/22/16 11/22/16 03:13 04:07 05:41 Sodium Chloride Carbon Dioxide Glucose POC Glucose 165 H 201 H 115 H Urine Creatinine 11/22/16 11/22/16 11/22/16 06:00 06:23 06:52 Sodium 146 H Chloride 110.6 H Carbon Dioxide 17 L Glucose 104 H POC Glucose 160 H Urine Creatinine 326.4 H 11/22/16 11/22/16 11/22/16 07:26 07:39 10:00 Sodium Chloride 108.6 H Carbon Dioxide 17 L Glucose 163 H POC Glucose 165 H 273 H Urine Creatinine 11/22/16 11:16 Sodium Chloride Carbon Dioxide Glucose POC Glucose 225 H Urine Creatinine
[2016-11-22 14:10] LABS: Anion Gap 21 mmol/L; BUN/Creatinine Ratio 8.33; Blood Urea Nitrogen 10 mg/dL (9-20); Carbon Dioxide 16 mmol/L (22-30); Chloride 106.8 mmol/L (98-107); Glucose 202 mg/dL (75-100); Potassium 3.7 mmol/L (3.6-5.0); Sodium 140 mmol/L (137-145)
[2016-11-22] MEDS: MORPHINE IV PRN (18:22)
[2016-11-22] MEDS ORDERED: D5W/0.45% NACL/KCL 20 MEQ 20 MEQ/1,000 ML BAG IV SCH (23:00)
[2016-11-22] MEDS ORDERED: D5W/0.45% NACL/KCL 20 MEQ 1,000 ML IV SCH (23:00)
--- NOTE | 2016-11-22 23:38 | Consultation ---
PULMONARY CRITICAL CARE NOTE CONSULTING PHYSICIAN: Dr. Medina. REASON FOR CONSULTATION: DKA need for IV insulin therapy. CHIEF COMPLAINT AND HISTORY OF PRESENT ILLNESS: The patient is a 21-year-old -[place] man with known significant past medical history, who came into the Emergency Room complaining of polyuria, polydipsia, lethargy, blurred vision really for a few weeks in the preceding couple of days or so prior to coming in, he had been having lots of nausea and vomiting. He did lose some weight. He was evaluated in the Emergency Room. He was found to be in diabetic ketoacidosis, new onset DKA, was admitted for IV insulin therapy. When I stopped by to see him, he was indeed on IV insulin drip at 4 units per hour. He had nausea and vomiting was improving. He denied chest pains. He denied any dysuria, any boils or open wounds on his body. He also denies a history of tobacco use or abuse whatsoever. That really is as much of the history of presentation as I have. PAST MEDICAL HISTORY: None. PAST SURGICAL HISTORY: None. MEDICATIONS: He was on at the time I stopped by to see him, according to the medication administration record included the following: He was on p.r.n. Dulcolax. He was on D5 half NS per DKA protocol, Lovenox 40 mg subcutaneous daily, insulin 4 units per hour, Reglan 10 mg IV q.6 hours. p.r.n. nausea and vomiting, Zofran 4 mg IV q.8 hours p.r.n. nausea and vomiting, morphine 2 mg IV q.4 hours p.r.n. moderate pain. ALLERGIES: No known drug allergies. He is allergic to PEANUTS and SHELLFISH DERIVED PRODUCTS. DIET: Obese gentleman, acute weight loss or again history is unknown. FAMILY AND SOCIAL HISTORY: Lives in the community. Denies alcohol, tobacco, or illicit drug use or abuse. There is a family history of diabetes. REVIEW OF SYSTEMS: No loss of consciousness. No new onset seizures. No new onset focal weakness. No gross hematochezia or melena. No gross hematuria or dysuria. No hematemesis, no hemoptysis. He had polyuria, polyphagia, and polydipsia. Complete review of system was obtained. Pertinent positives and/or negatives as in body of history above, otherwise noncontributory. PHYSICAL EXAMINATION: VITAL SIGNS: At presentation, he was afebrile, temperature 97.2, pulse was 109, respiratory rate was 18, blood pressure 156/104, oxygen sats were 99%, inspired oxygen concentration was not recorded. HEENT, EYES, EARS, NOSE, AND THROAT: Pupils are equal, round, 3-4 mm reactive to light. Extraocular muscle movements are intact. Grossly, no palpable lymph nodes in the supraclavicular or submandibular lymph node chains. LUNGS: Auscultation of both lung reyna unremarkable. Lungs are clear bilaterally. HEART: Heart sounds 1 and 2 are heard, regular rate and rhythm at the time of my evaluation. ABDOMEN: Soft, full, bowel sounds are positive, nontender. EXTREMITIES: Without overt digital clubbing, cyanosis, or pedal edema. NEUROLOGIC: The exam was grossly nonfocal. LABORATORY DATA: From my review are as follows: White cell count 12,300, hemoglobin 17.3, hematocrit 55.5, platelets 340,000. Venous blood gas showed a pH of 7.16. Serum sodium was 133, potassium 5.3, chloride 84, bicarbonate 11, BUN 18, creatinine 1.8, glucose 661. Hemoglobin A1c was greater than 20.1, magnesium 2.4. Serum triglyceride is 798. LDL cholesterol too numerous, test not reported. Urinalysis negative for nitrites and leukocyte esterase. He was spilling glucose, ketones 107.6. No radiographic studies. ASSESSMENT AND PLAN: We have a young gentleman in with diabetic ketoacidosis and new current IV insulin therapy appropriately. He will be admitted to the Intensive Care Unit for the IV insulin diabetic ketoacidosis protocol. He is going to get diabetic education. Continued tobacco abstinence has been counseled. He is appropriately on deep venous thrombosis prophylaxis. He will be placed on gastrointestinal prophylaxis. Flu and pneumonia vaccination will be per protocol. Thank you very much for the consult. Dr. Medina will follow along with further recommendations as picture progresses/becomes clearer. JOB# [id number] AJM/NTS
[2016-11-23] MEDS: LOVENOX SUB-Q SCH (09:28)
--- NOTE | 2016-11-23 10:30 | Progress Note ---
Assessment and Plan - Patient Problems (1) DKA (diabetic ketoacidoses) Current Visit: Yes Status: Acute Qualifiers: Diabetes mellitus type: type 1 Diabetes mellitus complication detail: without coma Qualified Code(s): E10.10 - Type 1 diabetes mellitus with ketoacidosis without coma Plan to address problem: Patient will be transitioned over to subcutaneous insulin today. We'll start Novolin 70/30 20 units in the a.m. and 15 units in the p.m. We'll start ADA diet. Follow clinically History Interval history: Patient feeling much better this a.m. Patient asking to eat and when can he go home Hospitalist Physical - Constitutional Vitals: Temp Pulse Resp BP Pulse Ox 98.3 F 81 14 129/60 98 11/23/16 08:00 11/23/16 09:00 11/23/16 09:00 11/23/16 09:00 11/23/16 09:00 General appearance: Present: no acute distress - EENT Eyes: Present: PERRL, EOM intact ENT: hearing intact, clear oral mucosa - Neck Neck: Present: supple, normal ROM - Respiratory Respiratory effort: normal Respiratory: bilateral: CTA - Cardiovascular Rhythm: regular Heart Sounds: Present: S1 & S2 - Abdominal General gastrointestinal: soft, non-tender, non-distended, normal bowel sounds - Psychiatric Psychiatric: appropriate mood/affect, intact judgment & insight - Neurologic Neurologic: CNII-XII intact, moves all extremities Results - Labs CBC & Chem 7: 11/21/16 05:08 11/23/16 09:34 Labs: Laboratory Last Values WBC 12.3 K/mm3 (4.5-11.0) H 11/21/16 05:08 RBC 6.70 M/mm3 (3.65-5.03) H 11/21/16 05:08 Hgb 17.3 gm/dl (11.8-15.2) H 11/21/16 05:08 Hct 55.5 % (35.5-45.6) H 11/21/16 05:08 MCV 83 fl (84-94) L 11/21/16 05:08 MCH 26 pg (28-32) L 11/21/16 05:08 MCHC 31 % (32-34) L 11/21/16 05:08 RDW 14.3 % (13.2-15.2) 11/21/16 05:08 Plt Count 340 K/mm3 (140-440) 11/21/16 05:08 Lymph % (Auto) 13.1 % (13.4-35.0) L 11/21/16 05:08 [place] % (Auto) 2.7 % (0.0-7.3) 11/21/16 05:08 Eos % (Auto) 0.0 % (0.0-4.3) 11/21/16 05:08 Baso % (Auto) 1.3 % (0.0-1.8) 11/21/16 05:08 Lymph # 1.6 K/mm3 (1.2-5.4) 11/21/16 05:08 [place] # 0.3 K/mm3 (0.0-0.8) 11/21/16 05:08 Eos # 0.0 K/mm3 (0.0-0.4) 11/21/16 05:08 Baso # 0.2 K/mm3 (0.0-0.1) H 11/21/16 05:08 Seg Neutrophils % 82.9 % (40.0-70.0) H 11/21/16 05:08 Seg Neutrophils # 10.2 K/mm3 (1.8-7.7) H 11/21/16 05:08 VBG pH 7.157 (7.320-7.420) L* 11/21/16 06:28 Sodium 140 mmol/L (137-145) 11/22/16 13:25 Potassium 3.7 mmol/L (3.6-5.0) 11/22/16 13:25 Chloride 106.8 mmol/L (98-107) 11/22/16 13:25 Carbon Dioxide 16 mmol/L (22-30) L 11/22/16 13:25 Anion Gap 21 mmol/L 11/22/16 13:25 BUN 10 mg/dL (9-20) 11/22/16 13:25 Creatinine 1.2 mg/dL (0.8-1.5) 11/22/16 13:25 Estimated GFR > 60 ml/min 11/22/16 13:25 BUN/Creatinine Ratio 8.33 % 11/22/16 13:25 Glucose 202 mg/dL (75-100) H 11/22/16 13:25 POC Glucose 170 (70-105) H 11/23/16 09:03 Hemoglobin A1c > 20.1 % (4-6) H 11/21/16 07:23 Calcium 9.0 mg/dL (8.4-10.2) 11/22/16 13:25 Phosphorus 3.4 mg/dL (2.5-4.5) D 11/21/16 09:11 Magnesium 2.3 mg/dL (1.7-2.3) 11/21/16 09:11 Total Bilirubin 0.4 mg/dL (0.1-1.2) 11/21/16 05:08 AST 31 units/L (5-40) 11/21/16 05:08 ALT 36 units/L (7-56) 11/21/16 05:08 Alkaline Phosphatase 186 units/L (35-129) H 11/21/16 05:08 Total Protein 8.4 g/dL (6.3-8.2) H 11/21/16 05:08 Albumin 4.5 g/dL (3.9-5) 11/21/16 05:08 Albumin/Globulin Ratio 1.2 % 11/21/16 05:08 Triglycerides 798 mg/dL (2-149) H 11/21/16 06:28 Cholesterol 374 mg/dL (50-199) H 11/21/16 06:28 LDL Cholesterol Direct TNR 11/21/16 06:28 HDL Cholesterol 39 mg/dL (40-59) L 11/21/16 06:28 Cholesterol/HDL Ratio 9.58 % 11/21/16 06:28 Lipase 24 units/L (13-60) 11/21/16 05:08 Urine Color Straw (Yellow) 11/21/16 06:23 Urine Turbidity Clear (Clear) 11/21/16 06:23 Urine pH 5.0 (5.0-7.0) 11/21/16 06:23 Ur Specific [place] 1.030 (1.003-1.030) 11/21/16 06:23 Urine Protein 100 mg/dl mg/dL (Negative) 11/21/16 06:23 Urine Glucose (UA) >=500 mg/dL (Negative) 11/21/16 06:23 Urine Ketones 80 mg/dL (Negative) 11/21/16 06:23 Urine Blood Sm (Negative) 11/21/16 06:23 Urine Nitrite Neg (Negative) 11/21/16 06:23 Urine Bilirubin Neg (Negative) 11/21/16 06:23 Urine Urobilinogen < 2.0 mg/dL (<2.0) 11/21/16 06:23 Ur Leukocyte Esterase Neg (Negative) 11/21/16 06:23 Urine WBC (Auto) < 1.0 /HPF (0.0-6.0) 11/21/16 06:23 Urine RBC (Auto) 5.0 /HPF (0.0-6.0) 11/21/16 06:23 U Epithel Cells (Auto) < 1.0 /HPF (0-13.0) 11/21/16 06:23 Urine Mucus Few /HPF 11/21/16 06:23 Urine Creatinine 326.4 mg/dL (0.1-20.0) H 11/22/16 06:00 Urine Microalbumin 29.9 mg/dL (0.1-34.0) 11/22/16 06:00 Microalb/Creat Ratio 91.6 ug/mg 11/22/16 06:00 Ketones 107.6 mg/dL (0.2-2.8) H 11/21/16 06:28
[2016-11-23 10:36] LABS: Anion Gap 15 mmol/L; BUN/Creatinine Ratio 6.36; Blood Urea Nitrogen 7 mg/dL (9-20); Calcium 8.6 mg/dL (8.4-10.2); Carbon Dioxide 19 mmol/L (22-30); Chloride 108.1 mmol/L (98-107); Glucose 170 mg/dL (75-100); Potassium 3.5 mmol/L (3.6-5.0); Sodium 139 mmol/L (137-145)
--- NOTE | 2016-11-23 12:29 | Progress Note ---
Assessment and Plan (1) DKA (diabetic ketoacidoses) Current Visit: Yes Status: Acute Qualifiers: Diabetes mellitus type: type 1 Diabetes mellitus complication detail: without coma Qualified Code(s): E10.10 - Type 1 diabetes mellitus with ketoacidosis without coma Plan to address problem: - prn BMP - transitioning to long acting insulin if gap closed - continue IV resuscitation - introduce oral diet - continue diabetic education Subjective Date of service: 11/23/16 Principal diagnosis: DKA Interval history: Seen and examined at bedside; 24 hour events reviewed; nursing and respiratory care staff consulted; no adverse overnight events reported to me; about to come off IV insulin drip now; no new issues otherwise Objective Vital Signs - 12hr 11/23/16 11/23/16 11/23/16 01:00 02:00 03:00 Temperature Pulse Rate 75 66 69 Pulse Rate [ Left Dorsalis Pedis] Pulse Rate [ Left Posterior Tibial] Pulse Rate [ Right Dorsalis Pedis] Pulse Rate [ Right Posterior Tibial] Respiratory 15 14 13 Rate Blood Pressure 104/68 114/63 103/64 O2 Sat by Pulse 96 96 97 Oximetry 11/23/16 11/23/16 11/23/16 04:00 05:01 06:00 Temperature 98.3 F Pulse Rate 69 92 H 79 Pulse Rate [ 66 Left Dorsalis Pedis] Pulse Rate [ 66 Left Posterior Tibial] Pulse Rate [ 66 Right Dorsalis Pedis] Pulse Rate [ 66 Right Posterior Tibial] Respiratory 11 L 13 15 Rate Blood Pressure 107/74 107/74 133/73 O2 Sat by Pulse 99 99 97 Oximetry 11/23/16 11/23/16 11/23/16 07:00 08:00 09:00 Temperature 98.3 F Pulse Rate 90 78 81 Pulse Rate [ Left Dorsalis Pedis] Pulse Rate [ Left Posterior Tibial] Pulse Rate [ Right Dorsalis Pedis] Pulse Rate [ Right Posterior Tibial] Respiratory 12 14 14 Rate Blood Pressure 132/74 142/69 129/60 O2 Sat by Pulse 99 98 98 Oximetry 11/23/16 11/23/16 11/23/16 10:00 11:00 12:00 Temperature 98.3 F Pulse Rate 75 74 Pulse Rate [ Left Dorsalis Pedis] Pulse Rate [ Left Posterior Tibial] Pulse Rate [ Right Dorsalis Pedis] Pulse Rate [ Right Posterior Tibial] Respiratory 15 16 Rate Blood Pressure 122/62 112/64 O2 Sat by Pulse 97 99 Oximetry 11/23/16 12:01 Temperature Pulse Rate 76 Pulse Rate [ Left Dorsalis Pedis] Pulse Rate [ Left Posterior Tibial] Pulse Rate [ Right Dorsalis Pedis] Pulse Rate [ Right Posterior Tibial] Respiratory 14 Rate Blood Pressure 145/84 O2 Sat by Pulse 97 Oximetry Constitutional: no acute distress Eyes: non-icteric ENT: oropharynx moist Neck: supple Effort: normal Ascultation: Bilateral: clear Cardiovascular: regular rate and rhythm Gastrointestinal: normoactive bowel sounds, soft, non-tender, non-distended Integumentary: normal Extremities: no cyanosis, no edema, pulses normal Neurologic: normal mental status, non-focal exam, pupils equal and round, motor strength normal and Psychiatric: mood appropriate, affect normal CBC and BMP: 11/24/16 04:29 11/24/16 11:12 Abnormal lab findings: Abnormal Labs 11/21/16 11/21/16 11/21/16 08:08 08:16 09:11 Sodium 136 L Potassium Chloride 93.7 L 97.1 L Carbon Dioxide 6 L* 9 L* BUN Glucose 491 H 414 H POC Glucose 436 H Urine Creatinine 11/21/16 11/21/16 11/21/16 09:24 10:17 10:30 Sodium Potassium Chloride Carbon Dioxide 9 L* BUN Glucose 348 H POC Glucose 397 H 297 H Urine Creatinine 11/21/16 11/21/16 11/21/16 11:35 12:16 12:49 Sodium 146 H Potassium Chloride Carbon Dioxide 14 L BUN Glucose 280 H POC Glucose 305 H 219 H Urine Creatinine 11/21/16 11/21/16 11/21/16 13:06 14:18 14:26 Sodium Potassium Chloride Carbon Dioxide 8 L* 15 L D BUN Glucose 256 H 241 H POC Glucose 214 H Urine Creatinine 11/21/16 11/21/16 11/21/16 15:24 15:38 16:41 Sodium Potassium Chloride Carbon Dioxide 15 L BUN Glucose 242 H POC Glucose 210 H 233 H Urine Creatinine 11/21/16 11/21/16 11/21/16 18:08 19:14 20:05 Sodium Potassium Chloride Carbon Dioxide BUN Glucose POC Glucose 197 H 173 H 210 H Urine Creatinine 11/21/16 11/21/16 11/21/16 21:17 22:10 22:54 Sodium 147 H Potassium Chloride 107.9 H Carbon Dioxide 18 L BUN Glucose 162 H POC Glucose 174 H 142 H Urine Creatinine 11/21/16 11/22/16 11/22/16 23:04 00:06 00:10 Sodium Potassium Chloride Carbon Dioxide BUN Glucose POC Glucose 171 H 191 H 162 H Urine Creatinine 11/22/16 11/22/16 11/22/16 00:44 01:20 02:26 Sodium Potassium Chloride 107.6 H Carbon Dioxide 16 L BUN Glucose 168 H POC Glucose 173 H 162 H Urine Creatinine 11/22/16 11/22/16 11/22/16 03:13 04:07 05:41 Sodium Potassium Chloride Carbon Dioxide BUN Glucose POC Glucose 165 H 201 H 115 H Urine Creatinine 11/22/16 11/22/16 11/22/16 06:00 06:23 06:52 Sodium 146 H Potassium Chloride 110.6 H Carbon Dioxide 17 L BUN Glucose 104 H POC Glucose 160 H Urine Creatinine 326.4 H 11/22/16 11/22/16 11/22/16 07:26 07:39 10:00 Sodium Potassium Chloride 108.6 H Carbon Dioxide 17 L BUN Glucose 163 H POC Glucose 165 H 273 H Urine Creatinine 11/22/16 11/22/16 11/22/16 11:16 12:09 13:25 Sodium Potassium Chloride Carbon Dioxide 16 L BUN Glucose 202 H POC Glucose 225 H 230 H Urine Creatinine 11/22/16 11/22/16 11/22/16 14:13 16:05 17:46 Sodium Potassium Chloride Carbon Dioxide BUN Glucose POC Glucose 176 H 203 H 197 H Urine Creatinine 11/22/16 11/22/16 11/22/16 18:09 19:00 20:18 Sodium Potassium Chloride Carbon Dioxide BUN Glucose POC Glucose 229 H 271 H 262 H Urine Creatinine 11/22/16 11/22/16 11/22/16 20:53 22:03 23:06 Sodium Potassium Chloride Carbon Dioxide BUN Glucose POC Glucose 253 H 278 H 260 H Urine Creatinine 11/22/16 11/23/16 11/23/16 23:52 01:02 01:58 Sodium Potassium Chloride Carbon Dioxide BUN Glucose POC Glucose 201 H 165 H 163 H Urine Creatinine 11/23/16 11/23/16 11/23/16 02:48 03:45 05:17 Sodium Potassium Chloride Carbon Dioxide BUN Glucose POC Glucose 162 H 177 H 155 H Urine Creatinine 11/23/16 11/23/1611/23/17 06:14 07:22 08:00 Sodium Potassium Chloride Carbon Dioxide BUN Glucose POC Glucose 187 H 146 H 183 H Urine Creatinine 11/23/16 11/23/16 09:03 09:34 Sodium Potassium 3.5 L Chloride 108.1 H Carbon Dioxide 19 L BUN 7 L Glucose 170 H POC Glucose 170 H Urine Creatinine
[2016-11-23] MEDS: NovoLIN R 100 UNITS in NACL 0.9% 99 ML IV SCH (12:35)
[2016-11-23] MEDS ORDERED: NACL P/F VIAL (10 ML) 10 ML ONE (14:50)
[2016-11-23 15:49] LABS: Alanine Aminotransferase 25 units/L (7-56); Albumin 3.2 g/dL (3.9-5); Albumin/Globulin Ratio 1.1 %; Alkaline Phosphatase 105 units/L (35-129); Anion Gap 16 mmol/L; BUN/Creatinine Ratio 5.45; Bilirubin,Total 0.6 mg/dL (0.1-1.2); Blood Urea Nitrogen 6 mg/dL (9-20); Calcium 8.6 mg/dL (8.4-10.2); Carbon Dioxide 19 mmol/L (22-30); Chloride 105.8 mmol/L (98-107); Glucose 151 mg/dL (75-100); Potassium 3.3 mmol/L (3.6-5.0); Sodium 137 mmol/L (137-145)
[2016-11-23] MEDS: NOVOLOG SUB-Q SCH ×2 (16:42→21:20)
[2016-11-24 05:13] LABS: Basophils % (Auto) 0.6 % (0.0-1.8); Eosinophils % (Auto) 1.1 % (0.0-4.3); Hematocrit 42.5 % (35.5-45.6); Hemoglobin 13.8 gm/dl (11.8-15.2); Mean Corpuscular HGB Conc 33 % (32-34); Mean Corpuscular Hemoglobin 26 pg (28-32); Mean Corpuscular Volume 81 fl (84-94); Platelet Count 213 K/mm3 (140-440); Red Blood Count 5.27 M/mm3 (3.65-5.03); White Blood Count 5.6 K/mm3 (4.5-11.0)
[2016-11-24 05:35] LABS: Alanine Aminotransferase 25 units/L (7-56); Albumin/Globulin Ratio 1.2 %; Alkaline Phosphatase 105 units/L (35-129); Anion Gap 21 mmol/L; Bilirubin,Total 0.6 mg/dL (0.1-1.2); Blood Urea Nitrogen 6 mg/dL (9-20); Calcium 8.4 mg/dL (8.4-10.2); Carbon Dioxide 18 mmol/L (22-30); Glucose 333 mg/dL (75-100); Potassium 3.5 mmol/L (3.6-5.0); Sodium 137 mmol/L (137-145); Total Protein 5.5 g/dL (6.3-8.2)
[2016-11-24] MEDS: NOVOLOG SUB-Q SCH (08:09)
[2016-11-24] MEDS: LOVENOX SUB-Q SCH (09:22)
--- NOTE | 2016-11-24 10:02 | Progress Note ---
Assessment and Plan - Patient Problems (1) DKA (diabetic ketoacidoses) Current Visit: Yes Status: Acute Qualifiers: Diabetes mellitus type: type 1 Diabetes mellitus complication detail: without coma Qualified Code(s): E10.10 - Type 1 diabetes mellitus with ketoacidosis without coma Plan to address problem: Patient was started on subcutaneous insulin but patient anion gap Started to increase again. So patient was placed back on insulin drip protocol. We'll continue to monitor. Will also order venous pH History Interval history: Patient feeling much better this a.m. Patient asking to eat and when can he go home Hospitalist Physical - Constitutional Vitals: Temp Pulse Resp BP Pulse Ox 98.3 F 84 21 128/76 80 L 11/24/16 08:00 11/24/16 09:01 11/24/16 09:01 11/24/16 07:00 11/24/16 08:09 General appearance: Present: no acute distress - EENT Eyes: Present: PERRL, EOM intact ENT: hearing intact, clear oral mucosa - Neck Neck: Present: supple, normal ROM - Respiratory Respiratory effort: normal Respiratory: bilateral: CTA - Cardiovascular Rhythm: regular Heart Sounds: Present: S1 & S2 - Abdominal General gastrointestinal: soft, non-tender, non-distended, normal bowel sounds - Psychiatric Psychiatric: appropriate mood/affect, intact judgment & insight - Neurologic Neurologic: CNII-XII intact, moves all extremities Results - Labs CBC & Chem 7: 11/24/16 04:29 11/24/16 11:12 Labs: Laboratory Last Values WBC 5.6 K/mm3 (4.5-11.0) 11/24/16 04:29 RBC 5.27 M/mm3 (3.65-5.03) H 11/24/16 04:29 Hgb 13.8 gm/dl (11.8-15.2) D 11/24/16 04:29 Hct 42.5 % (35.5-45.6) D 11/24/16 04:29 MCV 81 fl (84-94) L 11/24/16 04:29 MCH 26 pg (28-32) L 11/24/16 04:29 MCHC 33 % (32-34) 11/24/16 04:29 RDW 14.0 % (13.2-15.2) 11/24/16 04:29 Plt Count 213 K/mm3 (140-440) 11/24/16 04:29 Lymph % (Auto) 43.3 % (13.4-35.0) H 11/24/16 04:29 [place] % (Auto) 11.7 % (0.0-7.3) H 11/24/16 04:29 Eos % (Auto) 1.1 % (0.0-4.3) 11/24/16 04:29 Baso % (Auto) 0.6 % (0.0-1.8) 11/24/16 04:29 Lymph # 2.4 K/mm3 (1.2-5.4) 11/24/16 04:29 [place] # 0.7 K/mm3 (0.0-0.8) 11/24/16 04:29 Eos # 0.1 K/mm3 (0.0-0.4) 11/24/16 04:29 Baso # 0.0 K/mm3 (0.0-0.1) 11/24/16 04:29 Seg Neutrophils % 43.3 % (40.0-70.0) 11/24/16 04:29 Seg Neutrophils # 2.4 K/mm3 (1.8-7.7) 11/24/16 04:29 VBG pH 7.157 (7.320-7.420) L* 11/21/16 06:28 Sodium 137 mmol/L (137-145) 11/24/16 04:29 Potassium 3.5 mmol/L (3.6-5.0) L 11/24/16 04:29 Chloride 102.0 mmol/L (98-107) 11/24/16 04:29 Carbon Dioxide 18 mmol/L (22-30) L 11/24/16 04:29 Anion Gap 21 mmol/L 11/24/16 04:29 BUN 6 mg/dL (9-20) L 11/24/16 04:29 Creatinine 1.0 mg/dL (0.8-1.5) 11/24/16 04:29 Estimated GFR > 60 ml/min 11/24/16 04:29 BUN/Creatinine Ratio 6.00 % 11/24/16 04:29 Glucose 333 mg/dL (75-100) H 11/24/16 04:29 POC Glucose 364 (70-105) H 11/24/16 08:00 Hemoglobin A1c > 20.1 % (4-6) H 11/21/16 07:23 Calcium 8.4 mg/dL (8.4-10.2) 11/24/16 04:29 Phosphorus 3.4 mg/dL (2.5-4.5) D 11/21/16 09:11 Magnesium 2.3 mg/dL (1.7-2.3) 11/21/16 09:11 Total Bilirubin 0.6 mg/dL (0.1-1.2) 11/24/16 04:29 AST 32 units/L (5-40) 11/24/16 04:29 ALT 25 units/L (7-56) 11/24/16 04:29 Alkaline Phosphatase 105 units/L (35-129) 11/24/16 04:29 Total Protein 5.5 g/dL (6.3-8.2) L 11/24/16 04:29 Albumin 3.0 g/dL (3.9-5) L 11/24/16 04:29 Albumin/Globulin Ratio 1.2 % 11/24/16 04:29 Triglycerides 798 mg/dL (2-149) H 11/21/16 06:28 Cholesterol 374 mg/dL (50-199) H 11/21/16 06:28 LDL Cholesterol Direct TNR 11/21/16 06:28 HDL Cholesterol 39 mg/dL (40-59) L 11/21/16 06:28 Cholesterol/HDL Ratio 9.58 % 11/21/16 06:28 Lipase 24 units/L (13-60) 11/21/16 05:08 Urine Color Straw (Yellow) 11/21/16 06:23 Urine Turbidity Clear (Clear) 11/21/16 06:23 Urine pH 5.0 (5.0-7.0) 11/21/16 06:23 Ur Specific [place] 1.030 (1.003-1.030) 11/21/16 06:23 Urine Protein 100 mg/dl mg/dL (Negative) 11/21/16 06:23 Urine Glucose (UA) >=500 mg/dL (Negative) 11/21/16 06:23 Urine Ketones 80 mg/dL (Negative) 11/21/16 06:23 Urine Blood Sm (Negative) 11/21/16 06:23 Urine Nitrite Neg (Negative) 11/21/16 06:23 Urine Bilirubin Neg (Negative) 11/21/16 06:23 Urine Urobilinogen < 2.0 mg/dL (<2.0) 11/21/16 06:23 Ur Leukocyte Esterase Neg (Negative) 11/21/16 06:23 Urine WBC (Auto) < 1.0 /HPF (0.0-6.0) 11/21/16 06:23 Urine RBC (Auto) 5.0 /HPF (0.0-6.0) 11/21/16 06:23 U Epithel Cells (Auto) < 1.0 /HPF (0-13.0) 11/21/16 06:23 Urine Mucus Few /HPF 11/21/16 06:23 Urine Creatinine 326.4 mg/dL (0.1-20.0) H 11/22/16 06:00 Urine Microalbumin 29.9 mg/dL (0.1-34.0) 11/22/16 06:00 Microalb/Creat Ratio 91.6 ug/mg 11/22/16 06:00 Ketones 107.6 mg/dL (0.2-2.8) H 11/21/16 06:28
[2016-11-24] MEDS ORDERED: D50W (25GM) IV PRN (10:03)
[2016-11-24] MEDS: NovoLIN R 100 UNITS in NACL 0.9% 99 ML IV SCH (10:37)
[2016-11-24] MEDS ORDERED: NACL 0.9% 1000 ML 1,000 ML IV SCH (11:00)
[2016-11-24 11:48] LABS: Anion Gap 18 mmol/L; BUN/Creatinine Ratio 7.77; Blood Urea Nitrogen 7 mg/dL (9-20); Calcium 8.6 mg/dL (8.4-10.2); Carbon Dioxide 21 mmol/L (22-30); Chloride 101.2 mmol/L (98-107); Glucose 262 mg/dL (75-100); Potassium 3.5 mmol/L (3.6-5.0); Sodium 137 mmol/L (137-145)
[2016-11-24 11:49] LABS: Magnesium 1.5 mg/dL (1.7-2.3)
[2016-11-24] MEDS: D5W/0.45% NACL/KCL 20 MEQ 20 MEQ/1,000 ML BAG IV SCH ×2 (12:56→19:32)
--- NOTE | 2016-11-24 13:46 | Progress Note ---
Assessment and Plan (1) DKA (diabetic ketoacidoses) Current Visit: Yes Status: Acute Qualifiers: Diabetes mellitus type: type 1 Diabetes mellitus complication detail: without coma Qualified Code(s): E10.10 - Type 1 diabetes mellitus with ketoacidosis without coma Plan to address problem: - prn BMP - transitioned to long acting insulin - continue IV resuscitation - introduced oral diet - continue diabetic education - d/c planning ongoing Subjective Date of service: 11/24/16 Principal diagnosis: DKA Interval history: seen and examined at bedside; 24hour events reviewed; nursing and respiratory care staff consulted; no adverse overnight events reported to me; no new issues respiratory-nick Objective Vital Signs - 12hr 11/24/16 11/24/16 11/24/16 02:00 03:00 04:00 Temperature 98.3 F Pulse Rate 88 82 85 Pulse Rate [ 83 From Monitor] Pulse Rate [ 83 Left Dorsalis Pedis] Pulse Rate [ 83 Left Posterior Tibial] Pulse Rate [ 83 Left Radial] Pulse Rate [ 83 Radial] Pulse Rate [ 83 Right Dorsalis Pedis] Pulse Rate [ 83 Right Posterior Tibial] Pulse Rate [ 83 Right Radial] Respiratory 18 19 18 Rate Blood Pressure 113/50 113/72 114/70 O2 Sat by Pulse 93 99 94 Oximetry 11/24/16 11/24/16 11/24/16 05:00 06:00 07:00 Temperature Pulse Rate 83 86 85 Pulse Rate [ From Monitor] Pulse Rate [ Left Dorsalis Pedis] Pulse Rate [ Left Posterior Tibial] Pulse Rate [ Left Radial] Pulse Rate [ Radial] Pulse Rate [ Right Dorsalis Pedis] Pulse Rate [ Right Posterior Tibial] Pulse Rate [ Right Radial] Respiratory 14 18 14 Rate Blood Pressure 118/80 119/77 128/76 O2 Sat by Pulse 98 98 Oximetry 11/24/16 11/24/16 11/24/16 08:00 08:09 09:01 Temperature 98.3 F Pulse Rate 84 Pulse Rate [ From Monitor] Pulse Rate [ Left Dorsalis Pedis] Pulse Rate [ Left Posterior Tibial] Pulse Rate [ Left Radial] Pulse Rate [ Radial] Pulse Rate [ Right Dorsalis Pedis] Pulse Rate [ Right Posterior Tibial] Pulse Rate [ Right Radial] Respiratory 21 Rate Blood Pressure O2 Sat by Pulse 80 L Oximetry 11/24/16 11/24/16 11/24/16 10:01 11:01 12:00 Temperature 98.1 F Pulse Rate 90 88 Pulse Rate [ From Monitor] Pulse Rate [ Left Dorsalis Pedis] Pulse Rate [ Left Posterior Tibial] Pulse Rate [ Left Radial] Pulse Rate [ Radial] Pulse Rate [ Right Dorsalis Pedis] Pulse Rate [ Right Posterior Tibial] Pulse Rate [ Right Radial] Respiratory 19 17 Rate Blood Pressure O2 Sat by Pulse Oximetry 11/24/16 11/24/16 12:01 13:00 Temperature Pulse Rate 88 74 Pulse Rate [ From Monitor] Pulse Rate [ Left Dorsalis Pedis] Pulse Rate [ Left Posterior Tibial] Pulse Rate [ Left Radial] Pulse Rate [ Radial] Pulse Rate [ Right Dorsalis Pedis] Pulse Rate [ Right Posterior Tibial] Pulse Rate [ Right Radial] Respiratory 11 L 16 Rate Blood Pressure 106/47 O2 Sat by Pulse Oximetry Constitutional: no acute distress Eyes: non-icteric ENT: oropharynx moist Neck: supple Effort: normal Ascultation: Bilateral: clear Cardiovascular: regular rate and rhythm Gastrointestinal: normoactive bowel sounds, soft, non-tender, non-distended Integumentary: normal Extremities: no cyanosis, no edema, pulses normal Neurologic: normal mental status, non-focal exam, pupils equal and round, motor strength normal and Psychiatric: mood appropriate, affect normal CBC and BMP: 11/25/16 02:23 11/25/16 02:23 Abnormal lab findings: Abnormal Labs 11/21/16 11/21/16 11/21/16 08:08 08:16 09:11 RBC MCV MCH Lymph % (Auto) [place] % (Auto) Sodium 136 L Potassium Chloride 93.7 L 97.1 L Carbon Dioxide 6 L* 9 L* BUN Glucose 491 H 414 H POC Glucose 436 H Phosphorus Magnesium Total Protein Albumin Urine Creatinine 11/21/16 11/21/16 11/21/16 09:24 10:17 10:30 RBC MCV MCH Lymph % (Auto) [place] % (Auto) Sodium Potassium Chloride Carbon Dioxide 9 L* BUN Glucose 348 H POC Glucose 397 H 297 H Phosphorus Magnesium Total Protein Albumin Urine Creatinine 11/21/16 11/21/16 11/21/16 11:35 12:16 12:49 RBC MCV MCH Lymph % (Auto) [place] % (Auto) Sodium 146 H Potassium Chloride Carbon Dioxide 14 L BUN Glucose 280 H POC Glucose 305 H 219 H Phosphorus Magnesium Total Protein Albumin Urine Creatinine 11/21/16 11/21/16 11/21/16 13:06 14:18 14:26 RBC MCV MCH Lymph % (Auto) [place] % (Auto) Sodium Potassium Chloride Carbon Dioxide 8 L* 15 L D BUN Glucose 256 H 241 H POC Glucose 214 H Phosphorus Magnesium Total Protein Albumin Urine Creatinine 11/21/16 11/21/16 11/21/16 15:24 15:38 16:41 RBC MCV MCH Lymph % (Auto) [place] % (Auto) Sodium Potassium Chloride Carbon Dioxide 15 L BUN Glucose 242 H POC Glucose 210 H 233 H Phosphorus Magnesium Total Protein Albumin Urine Creatinine 11/21/16 11/21/16 11/21/16 18:08 19:14 20:05 RBC MCV MCH Lymph % (Auto) [place] % (Auto) Sodium Potassium Chloride Carbon Dioxide BUN Glucose POC Glucose 197 H 173 H 210 H Phosphorus Magnesium Total Protein Albumin Urine Creatinine 11/21/16 11/21/16 11/21/16 21:17 22:10 22:54 RBC MCV MCH Lymph % (Auto) [place] % (Auto) Sodium 147 H Potassium Chloride 107.9 H Carbon Dioxide 18 L BUN Glucose 162 H POC Glucose 174 H 142 H Phosphorus Magnesium Total Protein Albumin Urine Creatinine 11/21/16 11/22/16 11/22/16 23:04 00:06 00:10 RBC MCV MCH Lymph % (Auto) [place] % (Auto) Sodium Potassium Chloride Carbon Dioxide BUN Glucose POC Glucose 171 H 191 H 162 H Phosphorus Magnesium Total Protein Albumin Urine Creatinine 11/22/16 11/22/16 11/22/16 00:44 01:20 02:26 RBC MCV MCH Lymph % (Auto) [place] % (Auto) Sodium Potassium Chloride 107.6 H Carbon Dioxide 16 L BUN Glucose 168 H POC Glucose 173 H 162 H Phosphorus Magnesium Total Protein Albumin Urine Creatinine 11/22/16 11/22/16 11/22/16 03:13 04:07 05:41 RBC MCV MCH Lymph % (Auto) [place] % (Auto) Sodium Potassium Chloride Carbon Dioxide BUN Glucose POC Glucose 165 H 201 H 115 H Phosphorus Magnesium Total Protein Albumin Urine Creatinine 11/22/16 11/22/16 11/22/16 06:00 06:23 06:52 RBC MCV MCH Lymph % (Auto) [place] % (Auto) Sodium 146 H Potassium Chloride 110.6 H Carbon Dioxide 17 L BUN Glucose 104 H POC Glucose 160 H Phosphorus Magnesium Total Protein Albumin Urine Creatinine 326.4 H 0211/22/16 11/22/16 07:26 07:39 10:00 RBC MCV MCH Lymph % (Auto) [place] % (Auto) Sodium Potassium Chloride 108.6 H Carbon Dioxide 17 L BUN Glucose 163 H POC Glucose 165 H 273 H Phosphorus Magnesium Total Protein Albumin Urine Creatinine 11/22/16 11/22/16 11/22/16 11:16 12:09 13:25 RBC MCV MCH Lymph % (Auto) [place] % (Auto) Sodium Potassium Chloride Carbon Dioxide 16 L BUN Glucose 202 H POC Glucose 225 H 230 H Phosphorus Magnesium Total Protein Albumin Urine Creatinine 11/22/16 11/22/16 11/22/16 14:13 16:05 17:46 RBC MCV MCH Lymph % (Auto) [place] % (Auto) Sodium Potassium Chloride Carbon Dioxide BUN Glucose POC Glucose 176 H 203 H 197 H Phosphorus Magnesium Total Protein Albumin Urine Creatinine 11/22/16 11/22/16 11/22/16 18:09 19:00 20:18 RBC MCV MCH Lymph % (Auto) [place] % (Auto) Sodium Potassium Chloride Carbon Dioxide BUN Glucose POC Glucose 229 H 271 H 262 H Phosphorus Magnesium Total Protein Albumin Urine Creatinine 11/22/16 11/22/16 11/22/16 20:53 22:03 23:06 RBC MCV MCH Lymph % (Auto) [place] % (Auto) Sodium Potassium Chloride Carbon Dioxide BUN Glucose POC Glucose 253 H 278 H 260 H Phosphorus Magnesium Total Protein Albumin Urine Creatinine 11/22/16 11/23/16 11/23/16 23:52 01:02 01:58 RBC MCV MCH Lymph % (Auto) [place] % (Auto) Sodium Potassium Chloride Carbon Dioxide BUN Glucose POC Glucose 201 H 165 H 163 H Phosphorus Magnesium Total Protein Albumin Urine Creatinine 11/23/16 11/23/16 11/23/16 02:48 03:45 05:17 RBC MCV MCH Lymph % (Auto) [place] % (Auto) Sodium Potassium Chloride Carbon Dioxide BUN Glucose POC Glucose 162 H 177 H 155 H Phosphorus Magnesium Total Protein Albumin Urine Creatinine 11/23/16 11/23/16 11/23/16 06:14 07:22 08:00 RBC MCV MCH Lymph % (Auto) [place] % (Auto) Sodium Potassium Chloride Carbon Dioxide BUN Glucose POC Glucose 187 H 146 H 183 H Phosphorus Magnesium Total Protein Albumin Urine Creatinine 11/23/16 11/23/16 11/23/16 09:03 09:34 10:35 RBC MCV MCH Lymph % (Auto) [place] % (Auto) Sodium Potassium 3.5 L Chloride 108.1 H Carbon Dioxide 19 L BUN 7 L Glucose 170 H POC Glucose 170 H 168 H Phosphorus Magnesium Total Protein Albumin Urine Creatinine 11/23/16 11/23/16 11/23/16 11:26 12:30 13:44 RBC MCV MCH Lymph % (Auto) [place] % (Auto) Sodium Potassium Chloride Carbon Dioxide BUN Glucose POC Glucose 135 H 159 H 158 H Phosphorus Magnesium Total Protein Albumin Urine Creatinine 11/23/16 11/23/16 11/23/16 13:48 16:19 21:15 RBC MCV MCH Lymph % (Auto) [place] % (Auto) Sodium Potassium 3.3 L Chloride Carbon Dioxide 19 L BUN 6 L Glucose 151 H POC Glucose 238 H 324 H Phosphorus Magnesium Total Protein 6.0 L D Albumin 3.2 L Urine Creatinine 11/24/16 11/24/16 11/24/16 04:29 04:29 08:00 RBC 5.27 H MCV 81 L MCH 26 L Lymph % (Auto) 43.3 H [place] % (Auto) 11.7 H Sodium Potassium 3.5 L Chloride Carbon Dioxide 18 L BUN 6 L Glucose 333 H POC Glucose 364 H Phosphorus Magnesium Total Protein 5.5 L Albumin 3.0 L Urine Creatinine 11/24/16 11/24/16 11:12 11:12 RBC MCV MCH Lymph % (Auto) [place] % (Auto) Sodium Potassium 3.5 L Chloride Carbon Dioxide 21 L BUN 7 L Glucose 262 H POC Glucose Phosphorus 2.0 L Magnesium 1.5 L Total Protein Albumin Urine Creatinine
[2016-11-24 15:05] LABS: Anion Gap 18 mmol/L; Blood Urea Nitrogen 6 mg/dL (9-20); Calcium 8.4 mg/dL (8.4-10.2); Carbon Dioxide 22 mmol/L (22-30); Chloride 104.6 mmol/L (98-107); Glucose 131 mg/dL (75-100); Potassium 3.4 mmol/L (3.6-5.0); Sodium 141 mmol/L (137-145)
[2016-11-24 17:01] LABS: Anion Gap 19 mmol/L; BUN/Creatinine Ratio 6.66; Blood Urea Nitrogen 6 mg/dL (9-20); Calcium 8.1 mg/dL (8.4-10.2); Carbon Dioxide 22 mmol/L (22-30); Chloride 104.4 mmol/L (98-107); Glucose 147 mg/dL (75-100); Potassium 3.2 mmol/L (3.6-5.0); Sodium 142 mmol/L (137-145)
[2016-11-24] MEDS ORDERED: K-DUR PO ONE (18:00)
[2016-11-24] MEDS: MORPHINE IV PRN (18:34)
[2016-11-24 19:58] LABS: Anion Gap 17 mmol/L; Blood Urea Nitrogen 5 mg/dL (9-20); Calcium 8.2 mg/dL (8.4-10.2); Carbon Dioxide 23 mmol/L (22-30); Chloride 103.5 mmol/L (98-107); Glucose 153 mg/dL (75-100); Potassium 3.4 mmol/L (3.6-5.0); Sodium 140 mmol/L (137-145)
[2016-11-25 02:37] LABS: Basophils % (Auto) 0.8 % (0.0-1.8); Eosinophils % (Auto) 1.3 % (0.0-4.3); Hemoglobin 12.9 gm/dl (11.8-15.2); Mean Corpuscular HGB Conc 33 % (32-34); Mean Corpuscular Hemoglobin 26 pg (28-32); Mean Corpuscular Volume 79 fl (84-94); Platelet Count 205 K/mm3 (140-440); Red Blood Count 4.92 M/mm3 (3.65-5.03); White Blood Count 6.7 K/mm3 (4.5-11.0)
[2016-11-25 02:59] LABS: Anion Gap 17 mmol/L; BUN/Creatinine Ratio 6.25; Blood Urea Nitrogen 5 mg/dL (9-20); Calcium 8.1 mg/dL (8.4-10.2); Carbon Dioxide 22 mmol/L (22-30); Chloride 102.7 mmol/L (98-107); Glucose 158 mg/dL (75-100); Potassium 3.3 mmol/L (3.6-5.0); Sodium 138 mmol/L (137-145)
[2016-11-25 03:03] LABS: Alanine Aminotransferase 27 units/L (7-56); Albumin 2.8 g/dL (3.9-5); Albumin/Globulin Ratio 1.2 %; Alkaline Phosphatase 91 units/L (35-129); Anion Gap 16 mmol/L; BUN/Creatinine Ratio 6.25; Bilirubin,Total 0.4 mg/dL (0.1-1.2); Blood Urea Nitrogen 5 mg/dL (9-20); Calcium 8.2 mg/dL (8.4-10.2); Carbon Dioxide 22 mmol/L (22-30); Glucose 161 mg/dL (75-100); Potassium 3.3 mmol/L (3.6-5.0); Sodium 139 mmol/L (137-145); Total Protein 5.2 g/dL (6.3-8.2)
[2016-11-25] MEDS: NovoLIN R 100 UNITS in NACL 0.9% 99 ML IV SCH (03:56)
[2016-11-25] MEDS: D5W/0.45% NACL/KCL 20 MEQ 20 MEQ/1,000 ML BAG IV SCH (03:58)
--- NOTE | 2016-11-25 08:57 | Discharge Summary ---
Providers - Providers Date of Admission: 11/21/16 07:24 Date of discharge: 11/25/16 Attending physician: JALEN MEDINA 11/21/16 10:11 Consult to Physician [CONS] Urgent Consulting Provider: CARLOS MARTINEZ Reason For Exam: critical care management Place consult to:: Cell phone Notified:: yes Was contact made?: Yes If yes, spoke with:: Time called:: 10:10 Primary care physician: PAPER SAMPLE CLERK Hospitalization Condition: Serious Hospital course: Patient is a 21-year-old male with no previous history of diabetes but it does run in his family who states he's been having polyuria since August. States since Friday he's been having nausea vomiting and feeling bad. Some weight loss. Patient denies fever, cough, cold, diarrhea. Patient was admitted to the hospital with DKA. Started on insulin drip protocol and aggressive IV fluid hydration. Patient clinical status improved where he became clinically stable and acidosis resolved. Patient was able to tolerate by mouth diet and will be started on Lantus and Novolin 70/30. Patient was instructed to follow with Dr. Jalen Medina within one week. I will refer him to our diabetic specialist after discharge. Disposition: DISCHARGED TO HOME OR SELFCARE - Discharge Diagnoses (1) DKA (diabetic ketoacidoses) Status: Acute Qualifiers: Diabetes mellitus type: type 1 Diabetes mellitus complication detail: without coma Qualified Code(s): E10.10 - Type 1 diabetes mellitus with ketoacidosis without coma Core Measure Documentation - Palliative Care Palliative Care/ Comfort Measures: Not Applicable - Core Measures Any of the following diagnoses?: none Exam - Constitutional Vitals: Temp Pulse Resp BP Pulse Ox 98.6 F 84 19 106/49 98 11/25/16 08:00 11/25/16 06:00 11/25/16 06:00 11/25/16 06:00 11/25/16 04:00 General appearance: Present: no acute distress - EENT Eyes: Present: PERRL, EOM intact ENT: hearing intact, clear oral mucosa - Neck Neck: Present: supple, normal ROM - Respiratory Respiratory effort: normal Respiratory: bilateral: CTA - Cardiovascular Rhythm: regular Heart Sounds: Present: S1 & S2 - Abdominal General gastrointestinal: Present: soft, non-tender, non-distended, normal bowel sounds - Musculoskeletal Musculoskeletal: strength equal bilaterally - Psychiatric Psychiatric: appropriate mood/affect, intact judgment & insight - Neurologic Neurologic: CNII-XII intact, moves all extremities Plan Activity: advance as tolerated Weight Bearing Status: Weight Bear as Tolerated Diet: low fat, low cholesterol, low salt, diabetic Follow up with: PRIMARY CARE,MD [Primary Care Provider] - 3-5 Days JALEN MEDINA MD [Staff Physician] - 7 Days DAVI PERRY MD [Staff Physician] - 7 Days
[2016-11-25 11:47] LABS: Anion Gap 17 mmol/L; BUN/Creatinine Ratio 3.33; Blood Urea Nitrogen 3 mg/dL (9-20); Calcium 8.3 mg/dL (8.4-10.2); Carbon Dioxide 21 mmol/L (22-30); Glucose 125 mg/dL (75-100); Potassium 3.6 mmol/L (3.6-5.0); Sodium 137 mmol/L (137-145)
[2016-11-25] MEDS: KCL 10MEQ/100ML 10 MEQ/100 ML BAG IV SCH ×3 (12:48→15:40)
[2016-11-25 14:12] VITALS: BP 102/58
[2016-11-25] MEDS ORDERED: K-DUR PO ONE ×2 (15:32→18:00)
[2016-11-25] MEDS: LOVENOX SUB-Q SCH (17:04)
== END 2016-11-25 17:07 | disposition home or self-care (01) | DRG 639 ==
LOC: ED 03:23 → CC1 07:24
PROVIDERS: ADMIT Internal Medicine; ATTEND Internal Medicine
DX: E10.10 Type 1 diabetes mellitus with ketoacidosis without coma (principal); R63.4 Abnormal weight loss; Z91.010 Allergy to peanuts; Z91.013 Allergy to seafood; Z83.3 Family history of diabetes mellitus; Z68.33 Body mass index [BMI] 33.0-33.9, adult
CPT/HCPCS: 36415; 80048; 80053; 80061; 81001; 82010; 82043; 82805; 82962; 83036; 83690; 83735; 84100; 85025; 93005; 93010; 96372; 96374; J1650; J1815; J2270; J2405; J2765; J3480; J7030